=== PATIENT | female | born 1985 | race Caucasian/White ===

== ENCOUNTER 2016-09-18 23:07 | Emergency (ER) | payer SELFPAY | END 2016-09-19 00:38 | disposition home or self-care (01) | LOC: ER 23:07 | DX: N93.9 Abnormal uterine and vaginal bleeding, unspecified (principal); R10.9 Unspecified abdominal pain; F17.210 Nicotine dependence, cigarettes, uncomplicated; Z90.49 Acquired absence of other specified parts of digestive tract; Z88.6 Allergy status to analgesic agent; Z98.51 Tubal ligation status | CPT/HCPCS: 36415 ==

== ENCOUNTER 2016-10-31 15:14 | Emergency (ER) | payer SELFPAY | END 2016-10-31 17:35 | disposition home or self-care (01) | LOC: ER 15:14 | DX: R42 Dizziness and giddiness (principal); R11.0 Nausea; F17.210 Nicotine dependence, cigarettes, uncomplicated; Z90.49 Acquired absence of other specified parts of digestive tract; Z88.6 Allergy status to analgesic agent | CPT/HCPCS: 36415; 96374 ==

== ENCOUNTER 2016-11-01 21:26 | Emergency (ER) | payer SELFPAY | END 2016-11-01 22:31 | disposition home or self-care (01) | LOC: ER 21:26 | DX: H81.10 Benign paroxysmal vertigo, unspecified ear (principal); E66.9 Obesity, unspecified; F17.210 Nicotine dependence, cigarettes, uncomplicated; Z90.49 Acquired absence of other specified parts of digestive tract; Z88.6 Allergy status to analgesic agent ==